=== PATIENT | female | born 1970 | race American Indian/Alaskan Native ===

== ENCOUNTER 2016-08-19 10:40 | Outpatient (CLI) | payer MEDICARE ==
[2016-08-19 11:17] LABS: Blood Urea Nitrogen 11 mg/dL (7-17)
--- NOTE | 2016-08-19 14:04 | Cat Scan Report ---
CT ANGIOGRAM ABDOMEN AND PELVIS History: Atherosclerosis of renal arteries. Technique: Helical CT in 1.25 mm intervals. Sagittal and coronal reformatted images. 3-dimensional volume rendering technique. Findings: Bilateral single renal arteries are identified arising from the aorta near the L1 level. Both renal arteries are widely patent with no atherosclerotic disease identified. There is less than 20% stenosis in both renal arteries. The aorta, celiac axis, SMA, ABIOLA and bilateral iliac systems are widely patent with less than 20% stenosis. No significant atherosclerotic disease. No dissection or aneurysm. Impression: Unremarkable CTA abdomen and pelvis. No renal artery stenosis or significant atherosclerotic disease is demonstrated.
== END 2016-08-19 10:41 | disposition home or self-care (01) ==
LOC: CT 10:40
PROVIDERS: ATTEND Radiology Diagnostic Radiology
DX: I70.1 Atherosclerosis of renal artery (principal)
CPT/HCPCS: 36415; 74174; 82565; 84520; Q9967